=== PATIENT | female | born 1990 | race Two or more races ===

== ENCOUNTER 2024-10-29 12:15 | Emergency (ER) | payer OTHER ==
[~2024-10-29] VITALS: Ht 170.2 cm; Wt 68.0 kg
[2024-10-29] MEDS ORDERED: METHYLPREDNISOLONE SOD SUCC 40 MG VIAL IM ONE (13:30)
[2024-10-29] MEDS ORDERED: BENZONATATE 100 MG CAPSULE PO ONE (13:30)
[2024-10-29] MEDS ORDERED: LEVALBUTEROL HCL 1.25 MG/3 ML SOLUTION IH ONE (13:30)
[2024-10-29] MEDS ORDERED: IPRATROPIUM BROMIDE 0.5 MG/2.5 ML AMPUL.NEB IH ONE (13:30)
[2024-10-29 15:56] LABS: HEMATOCRIT 35.1 % (36.0-45.00); HEMOGLOBIN 11.7 g/dL (12.0-15.00); MEAN CELL VOLUME 84.4 fL (80.00-100.00); MEAN CORPUSCULAR HEMOGLOBIN 28.1 pg (27.00-32.0); MEAN CORPUSCULAR HGB CONC 33.2 g/dl (32.0-36.0); PLATELET COUNT 304 K/uL (150-450); RED BLOOD COUNT 4.16 M/uL (4.00-6.00); RED CELL DISTRIBUTION WIDTH 13.8 % (11.5-14.5)
[2024-10-29] MEDS ORDERED: LEVALBUTER0.63 MG/3 IH (16:29)
[2024-10-29] MEDS ORDERED: MONTELUKAST SODI4 M1 PO (16:29)
== END 2024-10-29 16:37 | disposition home or self-care (01) ==
LOC: ER 12:17
PROVIDERS: General Practice
DX: R06.02 Shortness of breath (principal); J45.909 Unspecified asthma, uncomplicated; R05.9 Cough, unspecified; J00 Acute nasopharyngitis [common cold]; Z20.822 Contact with and (suspected) exposure to COVID-19